=== PATIENT | male | born 1945 | race Caucasian/White ===

== ENCOUNTER 2016-12-30 03:30 | Inpatient (IN) | payer OTHER ==
[~2016-12-30] VITALS: Ht 175.3 cm; Wt 90.7 kg
[~2016-12-30 03:30] MED LIST: AMLODIPINE BESY10 M1 PO; ASPIRIN EC81 M1 PO; ATORVASTATIN CA80 M1 PO; CHLORTHALIDONE25 M1 PO; LISINOPRIL40 M1 PO
--- NOTE | 2016-12-30 09:50 | Operative Report ---
Operative/Inv Procedure Report Surgery Date: 12/30/16 Name of Procedure: Right total hip arthroplasty Pre-Operative Diagnosis: Primary right hip osteoarthritis Post-Operative Diagnosis: Same Estimated Blood Loss: 50ml to 100ml Surgeon/Open Hearth Furnace Operator Helper: SHANE RODGERS,Obdulio MANCIA Anesthesia: general endotracheal tube Implants: Regina secure fit femoral stem size 8 with a 127 neck angle 36+0 femoral head 58 acetabulum Trident Drains: None Specimens: Femoral head, acetabular reamings Complications: None Condition: Stable Operative Indication: Patient is a 71-year-old man who has a fairly long history of gradually worsening right hip pain. Evaluation revealed findings consistent with severe end-stage osteoarthritis. Patient underwent conservative management for a period of time but had increasing symptoms that interfere with normal activities of daily living. He wished to proceed with total hip arthroplasty after risks, benefits and expectations were discussed which included but were not limited to persistent hip pain, need for subsequent surgery, infection, DVT, injury to blood vessel or nerve, anesthesia risks, leg length discrepancy and dislocation Operative/Procedure Note Note: Patient was brought to the operating room and transferred to the operating table. Once under appropriate anesthesia patient was placed in a left lateral decubitus position with right side up. All bony prominences were well-padded. Axillary roll was placed. The right lower extremity was prepped and draped in standard fashion. Preoperative IV antibiotic's were given prophylactically. A standard lateral incision was made for anticipated superior approach of the hip. The incision was taken down sharply to the underlying fascia. The gluteus josé miguel was split and hip was internally rotated. Soft tissue dissection followed exposing the external rotators. The piriformis was identified and incised and reflected posteriorly. The interval between the gluteus minimus tendon and superior capsule was identified and a retractor was placed in this interval. Inferior retractor was placed to identify the inferior capsule posteriorly as well. Central portion of the capsule was incised and reflected posteriorly for later repair. Superior and inferior portions of the capsule were excised. Hip was dislocated. Severe end-stage degenerative changes of the femoral head was identified. Deformity including osteophyte formations were confirmed. Femoral neck cut was then made in standard fashion based on my preoperative templating and intraoperative measurements. An anterior retractor was then placed to visualize the acetabulum. There was severe matching end- stage degenerative changes of the acetabular fossa. A large osteophyte was removed from the anterior acetabular wall. Remaining labral tissue and soft tissues were removed from the acetabular fossa and then reaming started with a size 48 and I reamed up to a size 57 for anticipated insertion of a size 58 acetabulum. A trial 56 acetabular shell was used to confirm circumferential reaming. I was satisfied with this. I then impacted the definitive size 58 acetabulum at the appropriate anteversion and abduction based on patient's anatomy as well as the Regina tower. I had excellent scratch fit. 2 screws were placed in the safe zone in standard fashion by drilling measuring and placing appropriate length screws. After copious irrigation of the acetabular fossa the definitive liner to accept a 36 mm femoral head was impacted in place. The locking mechanism was confirmed. A lap sponge was placed in the acetabular fossa to protect the polyethylene during preparation of the proximal femur. The hip was internally rotated 90 and flexed about 60. A femoral elevator was placed underneath the proximal femur and then I used the box osteotome to lateralize my insertion site. Serial hand reamers were used up to a size 8. I broached up to a size 8 with excellent scratch fit of the final broach. I left this in place. I use a 127 neck angle to match patient's anatomy as well as patient's other side. I did a closed reduction with a 36+0 femoral head. I was satisfied with the stability in all planes. No evidence of anterior instability with simultaneous extension and external rotation. I restored patient's leg length based on my measurements. Internal rotation adduction and flexion to greater than 90 did not show any signs of posterior instability either. I then removed all trial components from the femur. Copious irrigation of the femoral canal followed. I then impacted the definitive size 8 secure fit femoral stem in position with excellent scratch fit. I used the 127 neck angle component. The trunnion was dried and the definitive size 36+0 femoral head was impacted in place. The locking mechanism was confirmed. Hip was reduced. Stability was confirmed as was with the broach area copious irrigation followed. Every level of closure was followed by copious irrigation. The posterior capsule and piriformis were repaired. Fascia was closed with interrupted #1 Vicryl suture. Subcutaneous tissues closed with 2-0 Vicryl suture. Skin was closed with julio. Appropriate dressings were applied and patient was awakened and taken the recovery room in good condition. No intraoperative complications. Blood loss was approximately 100 mL Discharge Disposition: PACU
--- NOTE | 2016-12-30 10:30 | RADIOLOGY REPORT ---
EXAMINATION: XR HIP, RIGHT CLINICAL INFORMATION: Status post right hip arthroplasty COMPARISON: None TECHNIQUE: AP view of the right hip. FINDINGS: Status post total right hip arthroplasty. Intact hardware. Periprosthetic osseous structures are intact. Hypertrophic changes along the superior and inferior aspects of the acetabulum. Recent postoperative changes surgical julio and air within the soft tissues and joint space. IMPRESSION: Recent postoperative changes. Intact hardware with no definite evidence of acute osseous abnormality..
--- NOTE | 2016-12-30 11:04 | Surgical Discharge Summary ---
Visit Information Visit Dates Admission Date: 12/30/16 Discharge Date: 01/02/17 History of Present Illness Chief Complaint: Hip pain, See H and P Medical History History of MRSA: No History of VRE: No History of CDIFF: No Tetanus Vaccine: 05/17/12 Surgical History Pertinent Surgical History: none (See H and P) Psychosocial History Who Do You Live With? Spouse What is Your Primary Language? Italian Review of Systems: See H and P Hospital Course Course Attending Physician: SHANE RODGERS,[facility] Primary Care Physician: STEFFANIE RODGERS,[facility] Course: Pt underwent R THR by Dr Ramirez on 12/30. He tolerated the procedure well and was brought to the PACU in good condition. Over the next couple of days he was able to tolerated a diet, he was voiding spontaneously and his pain was well controlled. He was begun on coumadin for dvt ppx on the day of surgery and his INR was increasing appropriately. He worked with PT - WBAT and was cleared for discharge. Allergies: Coded Allergies: nickel (Intermediate, RASH 12/27/16) Significant Procedures: R THR - see operative report Disposition Summary Disposition Principal Diagnosis: OA/DJD Additional Diagnosis: htn, hyperlipidemia, niddm Discharge Disposition: home health services Discharge Instructions General Discharge Information Code Status: Full Code Patient's Diet: 1800 kcal ADA Patient's Activity: WBAT Follow-Up Instructions/Appts: Keep scheduled appointment or call for an appointment within two weeks of discharge Medications at Discharge Discharge Medications: Stop taking the following medications: Aspirin (Ecotrin*) 81 MG TABLET. ORAL DAILY Continue taking these medications: Atorvastatin Calcium (Atorvastatin Calcium) 80 MG TABLET 1 Tablet ORAL DAILY Comments: Last Taken: 01/01/17 Time: 600 PM Lisinopril (Lisinopril) 40 MG TABLET 1 Tablet ORAL DAILY Comments: Last Taken: 01/02/17 Time: 1050 AM Amlodipine Besylate (Amlodipine Besylate) 10 MG TABLET 1 Tablet ORAL DAILY Comments: Last Taken: 01/02/17 Time: 1050 AM Chlorthalidone (Chlorthalidone) 25 MG TABLET 0.5 Tablet ORAL DAILY Comments: Last Taken: 01/02/17 Time: 1050 AM Start taking the following new medications: Oxycodone HCl/Acetaminophen (Percocet 5-325 MG Tablet) 5 MG-325 MG TABLET 1-2 Tablet ORAL EVERY 4-6 HOURS as needed for PAIN Qty = 36 No Refills Comments: Last Taken: 01/02/17 Time: 1050 AM Docusate Sodium (Colace) 100 MG CAPSULE 1 Capsule ORAL TWICE DAILY as needed for CONSTIPATION Qty = 30 No Refills Comments: Last Taken: 01/02/17 Time: 1050 AM Warfarin Sodium (Coumadin) 5 MG TABLET 1 Tablet ORAL DAILY Qty = 30 No Refills Instructions: DOSE FOR INR 2-3. Comments: Last Taken: 01/01/17 Time: 600 PM Rolling Walker (Rolling Walker) UNIT 1 Unit SEE INSTRUCTIONS Qty = 1 No Refills Instructions: Use as instructed. Copies To: SHANE RODGERS,PJ VALIENTE MD,GALINA
--- NOTE | 2016-12-30 11:19 | PN- Orthopedic ---
Subjective Subjective: Post op check Awake, alert post op Pain is well controlled at this time, denies nausea and is tolerating liquids without difficulty. Has not ambulated yet Objective Vital Signs and I&Os VSS, afebrile Uriine output - souza - low output post op - RN has just increased IVF rate General: alert and oriented times three Chest: clear anteriorly bilaterally, RRR abd: soft, good bs Ext: warm, no edema, positive sensate, good JAYDEN BLE, no calf tenderness, ALPS in place Wound: dressed, dry, ice pack in place Assessment/Plan Assessment/Plan 71 yo male s/p R THR pain management PT - wbat coumadin 5mg ordered for tonight Increase po fluids - encouraged watch urine output labs in am Core Measures/Miscellaneous Souza Catheter Date In: 12/30/16 Still Needed? Yes (24 hrs post op) Venous Thromboembolism VTE Risk Factors: Age > 40, Surgery VTE Contraindications: No Contraindications VTE Prophylaxis Ordered Inpt: Mech & Pharm VTE Diagnosis: No Beta Fe Is Beta Fe a Home Med? No Antibiotics Is Patient on Antibiotics? Yes If Yes: prophylaxis (24 hrs post op)
[2016-12-30 11:50] VITALS: BP 142/60
--- NOTE | 2016-12-30 11:50 | NUR ---
RECEIVED FROM PACU: A 71 YEAR OLD MALE S/P RIGHT TOTAL HIP REPLACEMENT. ALERT ORIENTED X3; SPOUSE AT BEDSIDE. DRESSING TO RIGHT HIP INTACT. +CMS. ALPS ON. MANZANO TO BEDSIDE DRAINAGE BAG, DRAINING ADEQUATE AMOUNT CLEAR YELLOW URINE. REVIEWED POC. CALL GOOD IN REACH. SEE NURSING ASSESSMENT FLOWSHEETS FOR FURTHER DOCUMENTATION.
[2016-12-30 15:40] VITALS: BP 150/70
[2016-12-30 19:12] VITALS: BP 154/62
[2016-12-30 21:10] VITALS: BP 142/62
[2016-12-31 00:01] VITALS: BP 162/66
[2016-12-31 03:20] VITALS: BP 166/66
--- NOTE | 2016-12-31 07:41 | PN- Orthopedic ---
See Addendum Subjective Subjective: The patient was seen this point postoperatively day 1. He reports that his pain is well-controlled has no other complaints at the current time. Objective Vital Signs and I&Os Vital Signs Date Time Temp Pulse Resp B/P Pulse O2 O2 Flow FiO2 Ox Delivery Rate 12/31 0320 98.7 79 20 166/66 93 Room Air 12/31 0001 98.4 76 18 162/66 91 Room Air 12/30 2110 98.1 74 20 142/62 91 12/30 1912 97.0 73 19 154/62 93 12/30 1540 97.6 62 18 150/70 93 12/30 1352 62 142/60 12/30 1150 95.5 62 18 142/60 94 Nasal 2.0L Cannula 12/30 1150 95.5 62 18 142/60 94 Nasal 2.0L Cannula 12/30 1150 94 Nasal 2.0L Cannula Intake & Output 12/31 0800 12/31 0000 12/30 1600 12/30 0800 12/30 0000 12/29 1600 Intake Total 840 370 Output Total 1400 550 250 Balance -560 -180 -250 Intake, IV 600 250 Intake, Oral 240 120 Output, Urine 1400 550 250 Patient 200 lb Weight Physical Exam: Gen.: Alert and in no obvious distress Skin: Warm and dry Extremities: Bilateral lower extremities are warm without calf tenderness or significant edema. Gross motor and sensory are intact. Right hip surgical dressing is clean, dry, and intact. Assessment/Plan Assessment/Plan Assessment: 71-year-old male status post right total hip arthroplasty postoperative day #1. The patient is progressing as expected and his pain is under adequate control. Plan: Out of bed with physical therapy patient is weightbearing as tolerated Follow-up morning laboratory studies and dose Coumadin for an INR between 2 and 3 Continue current pain regiment Hep-Lock IV fluids and DC Mora catheter Strict I's and O's GI and DVT prophylaxis Core Measures/Miscellaneous Mora Catheter Date In: 12/30/16 Venous Thromboembolism VTE Risk Factors: Age > 40, Surgery VTE Contraindications: No Contraindications VTE Prophylaxis Ordered Inpt: Mech & Pharm VTE Diagnosis: No Beta Fe Is Beta Fe a Home Med? No Antibiotics Is Patient on Antibiotics? No
--- NOTE | 2016-12-31 07:54 | NUR ---
At 0610, this rn noticed bloody urine in souza. Pt having bloody drainage from urethra. Surgical PA made aware, new order to d/c souza. Souza d/c'd as ordered. Pt due to void at 1400.
[2016-12-31 07:58] LABS: ABSOLUTE BASOPHIL COUNT 0 /CUMM (0.0-0.2); ABSOLUTE EOSINOPHIL COUNT 0.1 /CUMM (0.0-0.7); ABSOLUTE GRANULOCYTE CT 10.8 /CUMM (1.4-6.5); ABSOLUTE LYMPH COUNT 1.6 /CUMM (1.2-3.4); ABSOLUTE MONOCYTE COUNT 1.1 /CUMM (0.10-0.60); BASOPHIL % 0.3 % (0.0-2.0); EOSINOPHIL % 0.5 % (0-5); GRANULOCYTE % 79.2 % (42.2-75.2); HEMATOCRIT 39.2 % (42-52); MEAN CORPUSCULAR HGB 30.7 PG (27.0-31.0); MEAN CORPUSCULAR VOLUME 90.4 FL (80.0-94.0); PLATELET COUNT 278 /CUMM (130-400); RBC DISTRIBUTION WIDTH 14.3 % (11.5-14.5); RED BLOOD CELL CT 4.33 /CUMM (4.70-6.10); WHITE BLOOD CELL COUNT 13.6 /CUMM (4.8-10.8)
[2016-12-31 08:17] LABS: PT 10.9 SEC (9.4-12.5)
[2016-12-31 08:24] VITALS: BP 154/70
[2016-12-31 15:57] VITALS: BP 138/66
--- NOTE | 2016-12-31 20:06 | NUR ---
LATE ENTRY: MANZANO WAS DC'S AT 0600. PT VOIDED 150MLS OF HEMATURIA WITH DIFFICULTY. SURG JOSE CLEARY WAS CALLED AND MADE AWARE. ST CATH WAS ORDERED FOR 6PM. BLADDER SCAN BEFORE CATH WAS 663MLS. STRAIGHT CATH WAS ATTEMPTED. PT WAS IN PAIN CATH ADVANCED. NO URINE WAS DRAINED. CATH WAS RETRACTED AND GEL-LIKE BLOOD WAS COLLECTED IN 3INCH TIP OF CATH. SURG JOSE CLEARY WAS CALLED AND MADE AWARE OF THIS. ORDER TO REINSERT MANZANO. MANZANO WAS INSERTED AND 800MLS OF COLA COLORED URINE WAS DRAINED. WILL CONTINUE TO MONITOR.
[2017-01-01 00:11] VITALS: BP 142/50
--- NOTE | 2017-01-01 05:40 | Patient Discharge Instructions ---
Discharge Instructions General Discharge Information You were seen/treated for: Right hip pain You had these procedures: 12/30/16 Right total hip arthroplasty Watch for these problems: Redness, swelling, fever, signs of infection. Uncontrolled pain, Excessive bleeding. Decreased range of motion or unable to bear weight. Chest pain, shortness of breath. Call Surgeon to remove: Zeina (14 days) Do not soak the wound: Yes No bath, but you may shower: Yes Other wound care: Daily dry dressing changes. Diet Continue normal diet: Yes Activity Activity Self Limited: Yes Activity Limited to: Weight bear as tolerated Additional ACTIVITY Info: Daily physical therapy Acute Coronary Syndrome Inclusion Criteria At DC or during hospital stay patient has or had the following: ACS DIAGNOSIS No Discharge Core Measures Meds if any: Prescribed or Continued at Discharge Meds if any: NOT Prescribed or Continued at Discharge Congestive Heart Failure Inclusion Criteria At DC or during hospital stay patient has or had the following: CHF DIAGNOSIS No Discharge Core Measures Meds if any: Prescribed or Continued at Discharge Meds if any: NOT Prescribed or Continued at Discharge Cerebrovascular accident Inclusion Criteria At DC or during hospital stay patient has or had the following: CVA/TIA Diagnosis No Discharge Core Measures Meds if any: Prescribed or Continued at Discharge Meds if any: NOT Prescribed or Continued at Discharge Venous thromboembolism Inclusion Criteria VTE Diagnosis No VTE Type NONE VTE Confirmed by (Test) NONE Discharge Core Measures - Per Current guidelines, there needs to be overlap - treatment for the first 5 days of Warfarin therapy. - If discharged on Warfarin prior to 5 days of - overlap therapy, the patient will need to be - assessed for post discharge needs including - *Post discharge parental anticoagulation - *Warfarin and/or parental anticoagulation education - *Follow up date to check INR post discharge At least 5 days overlap therapy as Inpatient No Meds if any: Prescribed or Continued at Discharge Note: Overlap Therapy is Warfarin and Anticoagulant Meds if any: NOT Prescribed or Continued at Discharge
[2017-01-01] MEDS ORDERED: COLACE100 M1 PO (05:41)
[2017-01-01] MEDS ORDERED: COUMADIN5 M2 PO (05:41)
[2017-01-01] MEDS ORDERED: PERCOCET 5-3251 EACH PO (05:41)
[2017-01-01] MEDS ORDERED: RW (05:41)
--- NOTE | 2017-01-01 07:39 | PN- Orthopedic ---
Subjective Subjective: Patient had discomfort on evening shift associated with difficulty urinating. He was straight cath'd for no output, and so a souza catheter was placed with 800 cc out upon insertion. He tolerated the souza placement well and felt immediate relief. He denies any discomfort presently. He denies chest pain, shortness of breath and difficulty breathing. He denies nausea and vomitting. He has yet to move his bowels. He is without complaints of surgical pain at the present time. He has been OOB ambulating and tolerating it well. He anticipates discharge to home possibly tomorrow. Objective Vital Signs and I&Os Vital Signs Date Time Temp Pulse Resp B/P Pulse O2 O2 Flow FiO2 Ox Delivery Rate 01/01 0011 99.1 76 18 142/50 91 Room Air 12/31 2139 80 138/66 12/31 1557 97.9 80 18 138/66 94 12/31 0911 72 154/70 12/31 0911 154/70 12/31 0824 98.2 72 20 154/70 92 Room Air Intake & Output 01/01 0800 01/01 0000 12/31 1600 12/31 0800 12/31 0000 12/30 1600 Intake Total 200 200 840 370 Output Total 1350 1400 550 250 Balance 200 -1150 -560 -180 -250 Intake, IV 600 250 Intake, Oral 200 200 240 120 Output, Urine 1350 1400 550 250 Patient 200 lb Weight Physical Exam: General: Alert and oriented x3, no acute distress Cardiac: RRR, s1s2 Pulmonary: C T A bilaterally Abdomen: Non-tender, non-distended : Souza catheter in place, blood tinged urine noted Extremities: Moves all extremities, distal sensations intact. Motor 5/5 in plantar and dorsi flexion. No resting internal or external rotation to operative leg. Skin warm and well perfused. DP pulses palpable bialterally. Bilateral calves soft and non-tender. Surgical site: Right hip: Dressing dry and intact, taken down, incision well approximated, no drainage, julio in place, no surrounding erythema, thigh compartment soft, clean dressing reapplied. Assessment/Plan Assessment/Plan This is a 71 year old male, POD 2, s/p right total hip replacement. Post op course significant for urinary retention, has souza catheter in place now. -Continue souza catheter until evaluated by Dr. Amin, consult placed this am -Continue flomax -Continue current pain regimen -Activity: OOB with PT. wbat -F/U am labs -DVT ppx: ALPS, coumadin, dose to therapeutic INR 2-3 -Diet as tolerated -Bowel regimen as needed for no bm -Will d/w Dr. Ramirez Core Measures/Miscellaneous Souza Catheter Date In: 12/30/16 Venous Thromboembolism VTE Risk Factors: Age > 40, Surgery VTE Contraindications: No Contraindications VTE Prophylaxis Ordered Inpt: Mech & Pharm VTE Diagnosis: No Beta Fe Is Beta Fe a Home Med? No Antibiotics Is Patient on Antibiotics? No
[2017-01-01 07:43] LABS: ABSOLUTE BASOPHIL COUNT 0.1 /CUMM (0.0-0.2); ABSOLUTE EOSINOPHIL COUNT 0.2 /CUMM (0.0-0.7); ABSOLUTE GRANULOCYTE CT 7.8 /CUMM (1.4-6.5); ABSOLUTE LYMPH COUNT 1.8 /CUMM (1.2-3.4); BASOPHIL % 0.5 % (0.0-2.0); MEAN PLATELET VOLUME 7.9 FL (7.4-10.4); RBC DISTRIBUTION WIDTH 14.5 % (11.5-14.5); WHITE BLOOD CELL COUNT 10.8 /CUMM (4.8-10.8)
[2017-01-01 08:14] LABS: ABSOLUTE MONOCYTE COUNT 0.9 /CUMM (0.10-0.60); EOSINOPHIL % 1.7 % (0-5); GRANULOCYTE % 72.4 % (42.2-75.2); MEAN CORPUSCULAR HGB 30.5 PG (27.0-31.0); MEAN CORPUSCULAR HGB CONC 33.5 G/DL (33.0-37.0); PLATELET COUNT 239 /CUMM (130-400); RED BLOOD CELL CT 3.75 /CUMM (4.70-6.10)
[2017-01-01 08:20] LABS: PT 12.3 SEC (9.4-12.5)
[2017-01-01 08:22] LABS: HEMATOCRIT 34.1 % (42-52)
[2017-01-01 08:25] VITALS: BP 140/63
[2017-01-01 15:49] VITALS: BP 162/64
--- NOTE | 2017-01-01 18:14 | Cons- Urology ---
General Information and HPI Consulting Request Date of Consult: 01/01/17 Requested By: SHANE RODGERS,BLANCHE Reason for Consult: Gross hematuria Source of Information: patient, old records Exam Limitations: no limitations History of Present Illness: 71-year-old gentleman post-hip replacement was in retention postoperatively and a Souza catheter was inserted after 2 tries. The patient states that the initial attempt was somewhat more painful, and the Souza had a clot at the end of the initial catheter. The secondary catheter was inserted without significant difficulty. The patient states that at home, he double voids primarily in the a.m., occasional weak stream, rare nocturia. Denies history of UTI, dysuria, retention, hematuria. The patient has been placed on Flomax, and will now undergo a limited hematuria evaluation. This evaluation showed in no way keep the patient from being discharged home or rehabilitation as per orthopedic surgery. Allergies/Medications Allergies: Coded Allergies: nickel (Intermediate, RASH 12/27/16) Home Med List: Amlodipine Besylate 10 MG TABLET 1 TAB PO DAILY HTN (Reported) Aspirin (Ecotrin*) 81 MG TABLET.DR 1 TAB PO DAILY PROPHO (Reported) Atorvastatin Calcium 80 MG TABLET 1 TAB PO DAILY CHOLESTEROL (Reported) Chlorthalidone 25 MG TABLET 0.5 TAB PO DAILY HTN (Reported) Docusate Sodium (Colace) 100 MG CAPSULE 1 CAP PO BID PRN CONSTIPATION Lisinopril 40 MG TABLET 1 TAB PO DAILY HTN (Reported) Oxycodone HCl/Acetaminophen (Percocet 5-325 MG Tablet) 5 MG-325 MG TABLET 1-2 TAB PO Q4-6 PRN PAIN Warfarin Sodium (Coumadin) 5 MG TABLET 1 TAB PO DAILY BLOOD THINNER DOSE FOR INR 2-3. Current Medications: Current Medications Sig/Peyman Start time Last Medication Dose Route Stop Time Status Admin Al Hydroxide/Mg 30 ML Q6P PRN 12/30 1230 AC Hydroxide PO Amlodipine Besylate 10 MG DAILY 12/30 1000 AC 01/01 PO 0931 Atorvastatin Calcium 80 MG 1700 12/30 1700 AC 01/01 PO 1758 Chlorthalidone 12.5 MG DAILY 12/30 1000 AC 01/01 PO 0931 Docusate Sodium 100 MG BID 01/01 2200 AC PO Docusate Sodium 100 MG DAILY NEEDED PRN 12/30 1230 DC PO Insulin Human Regular 0 TIDAC/HS 12/30 1200 AC 01/01 SC 1758 Lisinopril 2.5 MG DAILY 12/31 1000 AC 01/01 PO 0931 Magnesium Oxide 400 MG BID 01/01 1345 AC 01/01 PO 01/01 2201 1458 Morphine Sulfate 2 MG Q3P PRN 12/30 1230 AC IV Morphine Sulfate 4 MG Q3P PRN 12/30 1230 AC 12/31 IV 1843 Ondansetron HCl 4 MG Q6P PRN 12/30 1230 AC IV Oxycodone/ 1 TAB Q4P PRN 12/30 1230 AC 01/01 Acetaminophen PO 0728 Oxycodone/ 2 TAB Q4P PRN 12/30 1230 AC 01/01 Acetaminophen PO 1458 Patient Medication 1 ED .STK-MED ONE 01/01 1402 DC Teaching ED 01/01 1403 Polyethylene Glycol 17 GM DAILY NEEDED PRN 12/30 1230 AC PO Potassium Chloride 40 MEQ BID 01/01 1015 AC 01/01 PO 01/01 2201 1251 Senna/Docusate Sodium 2 TAB AT BEDTIME NEED.. 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 Home Smoking Status: Former Smoker Employment History Retired? unknown Review of Systems Review of Systems Constitutional: Denies: no symptoms. EENTM: Denies: no symptoms. Cardiovascular: Denies: no symptoms. Respiratory: Denies: no symptoms. GI: Reports: bloating, constipation. Genitourinary: Reports: hematuria (retention-has souza now). Musculoskeletal: Reports: joint pain. Exam & Diagnostic Data Vital Signs and I&O Vital Signs Date Time Temp Pulse Resp B/P Pulse O2 O2 Flow FiO2 Ox Delivery Rate 01/01 1549 98.3 87 20 162/64 92 01/01 931 81 140/63 01/01 0931 81 140/63 01/01 0931 81 140/63 01/01 08 99.0 81 20 140/63 90 Room Air 01/01 0011 99.1 76 18 142/50 91 Room Air 12/31 2139 80 138/66 Intake & Output 01/01 0800 01/01 0000 12/31 1600 12/31 0800 12/31 0000 Intake Total 200 200 840 370 Output Total 750 1350 1400 550 Balance -750 200 -1150 -560 -180 Intake, IV 600 250 Intake, Oral 200 200 240 120 Output, Urine 750 1350 1400 550 Physical Exam General Appearance: well developed/nourished, no apparent distress, alert, awake Head: atraumatic Neck: normal inspection, supple, full range of motion Respiratory: normal breath sounds Cardiovascular: regular rate/rhythm Gastrointestinal: normal bowel sounds, soft, distention Back: no vertebral tenderness Extremities: normal inspection Neurologic/Psych: no motor/sensory deficits, awake, alert, oriented x 3 Reproductive: Normal male genitalia, scrotal edema: otherwise WNL-souza in place Last 24 Hours of Labs: Laboratory Tests 01/01 0617 Chemistry Sodium (137 - 145 mmol/L) 139 Potassium (3.5 - 5.1 mmol/L) 3.0 L Chloride (98 - 107 mmol/L) 99 Carbon Dioxide (22 - 30 mmol/L) 29 Anion Gap (5 - 16) 11 BUN (9 - 20 mg/dL) 20 Creatinine (0.7 - 1.2 mg/dL) 1.0 Estimated GFR (>60 ml/min) > 60 BUN/Creatinine Ratio (7 - 25 %) 20.0 Magnesium (1.6 - 2.3 mg/dL) 1.7 Coagulation PT (9.4 - 12.5 SEC) 12.3 INR (0.90 - 1.17) 1.17 Hematology CBC w Diff NO MAN DIFF REQ WBC (4.8 - 10.8 /CUMM) 10.8 RBC (4.70 - 6.10 /CUMM) 3.75 L Hgb (14.0 - 18.0 G/DL) 11.4 L Hct (42 - 52 %) 34.1 L MCV (80.0 - 94.0 FL) 91.0 MCH (27.0 - 31.0 PG) 30.5 RDW (11.5 - 14.5 %) 14.5 Plt Count (130 - 400 /CUMM) 239 MPV (7.4 - 10.4 FL) 7.9 Gran % (42.2 - 75.2 %) 72.4 Lymphocytes % (20.5 - 51.1 %) 16.8 L Monocytes % (1.7 - 9.3 %) 8.6 Eosinophils % (0 - 5 %) 1.7 Basophils % (0.0 - 2.0 %) 0.5 Absolute Granulocytes (1.4 - 6.5 /CUMM) 7.8 H Absolute Lymphocytes (1.2 - 3.4 /CUMM) 1.8 Absolute Monocytes (0.10 - 0.60 /CUMM) 0.9 H Absolute Eosinophils (0.0 - 0.7 /CUMM) 0.2 Absolute Basophils (0.0 - 0.2 /CUMM) 0.1 PUBS MCHC (33.0 - 37.0 G/DL) 33.5 Imaging Results: renal us and kub ordered. Assessment/Plan Assessment/Plan hematuria likely related to initial souza insertion trauma/given history of tobacco use 40 years ago, full hematuria evaluation should be pursued. Copies To: ROMEO SHAVER MD Consult Acknowledgment - Thank you for your consult request. 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 Agree with Flomax 0.4 mg daily at bedtime, to continue outpatient as well. Voiding trial should be performed tomorrow morning at 6 AM. If the patient fails to void after 6 hours, and is in extreme need to void, please reinsert Souza catheter with which the patient can go home. Additionally patient with gross hematuria, likely due to Souza catheter insertion. However given tobacco use history, full hematuria workup should be pursued. I have ordered urine cytology to be obtained in the morning, and renal ultrasound, and KUB, have been ordered for tonight prior to discharge home tomorrow. The patient should follow up in my office after a few weeks of recovery from his hip surgery.
--- NOTE | 2017-01-01 20:33 | NUR ---
NURSING NOTE: PT LEFT FLOOR VIA STRETCHER BY DISTRIBUTION FOR ULTRASOUND AND XRAY. TICKET TO RIDE SIGNED. AWAIT RETURN TO FLOOR.
--- NOTE | 2017-01-01 22:24 | ULTRASOUND REPORT ---
EXAMINATION: US RETROPERITONEAL COMPLETE (RENAL) CLINICAL INFORMATION: Hematuria. COMPARISON: None TECHNIQUE: Real-time imaging of the kidneys and bladder. Color Doppler exam utilized. FINDINGS: RIGHT KIDNEY: 11.1 x 5.4 x 4.4 cm (SAG x AP x TRV). The kidney is normal in size, contour, and echogenicity. Renal cortical thickness is normal. No calculi or focal parenchymal lesions. No hydronephrosis. There are anechoic cortical cyst. In the upper pole there is a 1.5 x 1.9 x 1.6 cm cyst. In the lower pole there is a 2 x 1.7 x 1.6 cm cyst. LEFT KIDNEY: 12.7 x 6.7 x 6.3 cm (SAG x AP x TRV). The kidney is normal in size, contour, and echogenicity. Renal cortical thickness is normal. No calculi or focal parenchymal lesions. No hydronephrosis. Are anechoic cyst. In the mid pole there is a cyst measuring 2 x 1.8 x 1.6 cm. Nipple pole there is a 4.5 x 4.2 x 4.6 cm cyst. BLADDER: Partially filled. Mora catheter in bladder. No ureteral jets seen. Prostate measures 2.9 x 2.8 cm of size. IMPRESSION: Normal ultrasound of kidneys..
--- NOTE | 2017-01-01 22:27 | RADIOLOGY REPORT ---
EXAMINATION: XR ABDOMEN CLINICAL INDICATION: Hematuria. Recent hip replacement. Patient on heparin. COMPARISON: Ultrasound of the kidneys done today. TECHNIQUE: KUB, 2 exposures. FINDINGS: The bowel gas pattern is normal with no evidence of ileus or obstruction. No unusual soft tissue calcifications are noted. Specifically, no radiopaque calculi are seen within the expected course of the urinary tract. Phleboliths are seen in the right pelvis. Two opaque pills are located in the stomach. Bilateral hip replacements are in place. 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 IMPRESSION: No radiopaque calculi seen in the urinary tract.
[2017-01-02 00:55] VITALS: BP 164/78
[2017-01-02 08:07] VITALS: BP 160/73
[2017-01-02 08:14] LABS: PT 14.6 SEC (9.4-12.5)
[2017-01-02 10:53] VITALS: BP 146/62
--- NOTE | 2017-01-02 11:41 | PN- Orthopedic ---
Subjective Subjective: The patient was seen this morning postoperatively day #2. He reports his pain is under adequate control and has no other complaints at the current time. His Mora catheter was DC'd earlier this morning and he has voided 200 ML so far and feels comfortable. He has no complaints the current time and is eager to be discharged home. Objective Vital Signs and I&Os Vital Signs Date Time Temp Pulse Resp B/P Pulse O2 O2 Flow FiO2 Ox Delivery Rate 01/02 1053 76 146/62 01/02 1053 76 146/62 01/02 1053 76 146/62 01/02 0807 98.1 88 20 160/73 92 Room Air 01/02 0055 98.8 85 20 164/78 94 Room Air 01/01 1549 98.3 87 20 162/64 92 Intake & Output 01/02 1600 01/02 0800 01/02 0000 01/01 1600 01/01 0800 01/01 0000 Intake Total 200 200 Output Total 750 392 340 4176 Balance -750 -900 -750 200 -1150 Intake, Oral 200 200 Output, Urine 750 595 339 2008 Physical Exam: Gen.: Alert and obvious distress Skin: Warm and dry Extremities: Bilateral lower extremities are warm without calf tenderness or significant edema. Gross motor and sensory are intact. Surgical dressing is clean, dry, and intact. Assessment/Plan Assessment/Plan Assessment: 71-year-old male status post right total hip replacement postoperative day #3. The patient is progressing as expected and is under adequate control. Plan: Continue with physical therapy Follow-up laboratory studies and dose Coumadin for an INR between 2 and 3 Continue current pain regiment GI and DVT prophylaxis Discharge home Core Measures/Miscellaneous Mora Catheter Date In: 12/30/16 Venous Thromboembolism VTE Risk Factors: Age > 40, Surgery VTE Contraindications: No Contraindications VTE Prophylaxis Ordered Inpt: Mech & Pharm VTE Diagnosis: No Beta Fe Is Beta Fe a Home Med? No Antibiotics Is Patient on Antibiotics? No
== END 2017-01-02 13:40 | disposition home health service (06) | DRG 470 ==
LOC: ENRESERVDT → CANRESERV → ENRESERVTM → 2NB 03:30 → SDA 03:30 → ENPENDDIS 03:30 → SDA 07:00 → 2NB 11:51
PROVIDERS: Physician Assistant; Physician Assistant Surgical; ADMIT Orthopaedic Surgery
PROC: 0SR904A Replacement of Right Hip Joint with Ceramic on Polyethylene Synthetic Substitute, Uncemented, Open Approach (ICD-10-PCS; principal; 2016-12-30)
DX: M16.11 Unilateral primary osteoarthritis, right hip (principal); E11.9 Type 2 diabetes mellitus without complications; I10 Essential (primary) hypertension; R33.9 Retention of urine, unspecified; E78.5 Hyperlipidemia, unspecified; R33.8 Other retention of urine; Z87.891 Personal history of nicotine dependence
CPT/HCPCS: 2NBP; 36415; 73501; 74000; 76775; 82436; 87086; 88304; 88305; 97110-GO; 97116-GO; 97161-GP; 97530-GO; J0131; J0171; J1885; J2405; J3370; J7060